=== PATIENT | female | born 1990 | race Caucasian/White ===

== ENCOUNTER 2016-10-25 12:03 | Emergency (ER) | payer BC ==
[~2016-10-25 12:03] MED LIST: FLOVENT 110 MC7.9 GM INH; GLUCOPHAGE 500500 MG PO; IRON325 M1 PO; NORCO 7.5-3251 EACH PO; TOPROL XL 100100 MG PO
[2016-10-25 15:05] LABS: HEMOGLOBIN 13.6 gm/dl (12.3-15.3); RED BLOOD COUNT 5.53 M/UL (4.00-5.10); WHITE BLOOD COUNT 11.8 K/UL (4.5-11.0)
[2016-10-25 15:44] LABS: BUN/CREATININE RATIO 15 (0-10)
== END 2016-10-25 17:10 | disposition home or self-care (01) ==
LOC: ER1 12:03
PROVIDERS: Emergency Medicine
DX: K02.9 Dental caries, unspecified (principal); R11.2 Nausea with vomiting, unspecified; Z90.49 Acquired absence of other specified parts of digestive tract; Z88.0 Allergy status to penicillin
CPT/HCPCS: 36415; 80048; 81001; 84703; 85025; 96374; 99284; J1885; J2405

== ENCOUNTER 2016-12-05 11:55 | Emergency (ER) | payer BC ==
[2016-12-05 14:06] LABS: RED BLOOD COUNT 5.2 M/UL (4.00-5.10); WHITE BLOOD COUNT 12.7 K/UL (4.5-11.0)
[2016-12-05 14:28] LABS: BUN/CREATININE RATIO 23 (0-10)
== END 2016-12-05 15:47 | disposition home or self-care (01) ==
LOC: ER1 11:55
PROVIDERS: Emergency Medicine
DX: K59.00 Constipation, unspecified (principal); R31.9 Hematuria, unspecified; K76.0 Fatty (change of) liver, not elsewhere classified; J45.909 Unspecified asthma, uncomplicated; D64.9 Anemia, unspecified; Z88.0 Allergy status to penicillin
CPT/HCPCS: 36415; 80053; 81001; 82150; 83690; 84703; 85025; 87086; 99284

== ENCOUNTER 2020-10-18 08:45 | Emergency (ER) | payer BC, OTHER ==
[~2020-10-18 08:45] MED LIST changes: +ANUSOL SUPP EAC12 EA PR; +ANUSOL-HC CREAM30 GM PR; +COLACE 100MG C100 MG PO; +FERROUS SULFAT325 MG PO; +IBU600 MG PO; +MACROBID 100 M100 MG PO; +METFORMIN HCL500 MG PO; +NAPROSYN EC 50500 MG PO; +NORCO 5-325 TA1 EACH PO; +PYRIDIUM200 MG PO
[2020-10-18 09:33] LABS: HEMOGLOBIN 11.8 gm/dl (12.3-15.3); RED BLOOD COUNT 5.02 M/UL (4.00-5.10); WHITE BLOOD COUNT 12.1 K/UL (4.5-11.0)
[2020-10-18 09:59] LABS: BUN/CREATININE RATIO 13 (0-10)
[2020-10-18] MEDS ORDERED: PROVERA 10 MG T10 MG PO (16:33)
== END 2020-10-18 16:42 | disposition home or self-care (01) ==
LOC: ER1 08:45
PROVIDERS: Student in an Organized Health Care Education/Training Program
DX: N93.9 Abnormal uterine and vaginal bleeding, unspecified (principal); J45.909 Unspecified asthma, uncomplicated; E11.9 Type 2 diabetes mellitus without complications; I10 Essential (primary) hypertension; Z90.49 Acquired absence of other specified parts of digestive tract; Z88.1 Allergy status to other antibiotic agents; Z79.899 Other long term (current) drug therapy; Z79.84 Long term (current) use of oral hypoglycemic drugs; D21.9 Benign neoplasm of connective and other soft tissue, unspecified
CPT/HCPCS: 76856; 80053; 81001; 84703; 85025; 85610; 85730; 96374; 99284; J2270; Q9967

== ENCOUNTER 2021-10-31 11:01 | Emergency (ER) | payer BC ==
[~2021-10-31 11:01] MED LIST changes: +PROVERA 10 MG T10 MG PO
[2021-10-31] MEDS ORDERED: IBUPROFEN800 MG PO (14:48)
== END 2021-10-31 15:29 | disposition home or self-care (01) ==
LOC: ER1 11:01
DX: M23.92 Unspecified internal derangement of left knee (principal); M51.36 Other intervertebral disc degeneration, lumbar region; M25.552 Pain in left hip; E11.9 Type 2 diabetes mellitus without complications; Z88.0 Allergy status to penicillin
CPT/HCPCS: 72100; 73502; 73562; 93971; 99284